=== PATIENT | female | born 1975 | race Caucasian/White ===

== ENCOUNTER → 2020-05-28 07:01 | Outpatient (CLI) | payer OTHER, SELFPAY ==
[2020-05-29 14:22] LABS: Covid-19 Nasal PCR Sendout Lex Not Detected
== END ==
PROVIDERS: Visit Provider Nurse Practitioner
DX: Z11.59 Encounter for screening for other viral diseases (principal)
CPT/HCPCS: U0004

== ENCOUNTER → 2020-06-04 07:43 | Outpatient (CLI) | payer OTHER, SELFPAY ==
[2020-06-05 14:21] LABS: Covid-19 Nasal PCR Sendout Lex Not Detected
== END ==
PROVIDERS: Visit Provider Nurse Practitioner
DX: Z03.818 Encounter for observation for suspected exposure to other biological agents ruled out (principal); Z11.59 Encounter for screening for other viral diseases
CPT/HCPCS: U0004

== ENCOUNTER → 2021-02-19 11:30 | Outpatient (CLI) | payer OTHER, SELFPAY | PROVIDERS: Visit Provider Nurse Practitioner | DX: Z11.52 Encounter for screening for COVID-19 (principal) | CPT/HCPCS: U0003 ==